=== PATIENT | female | born 1960 ===

== ENCOUNTER 2022-04-23 06:30 | Day surgery (SDC) | payer OTHER ==
[~2022-04-23] VITALS: Ht 160 cm; Wt 92.1 kg
[~2022-04-23 06:30] MED LIST: ZESTRIL20 MG PO
[2022-04-23] MEDS ORDERED: ULTRACET PO (09:33)
[2022-04-23] MEDS ORDERED: CEFADROXIL500 MG PO (09:34)
[2022-04-23] MEDS ORDERED: PROTONIX40 MG PO (09:35)
== END 2022-04-23 11:30 | disposition home or self-care (01) ==
LOC: SURH 06:30 → O/R 06:30 → CIR.AMB 06:30 → EDSTATUS 07:45 → SURH 07:45 → CIR.AMB 11:30 → O/R 11:30
PROVIDERS: ATTEND Surgery
DX: K80.10 Calculus of gallbladder with chronic cholecystitis without obstruction (principal); K82.8 Other specified diseases of gallbladder; I10 Essential (primary) hypertension; Z20.822 Contact with and (suspected) exposure to COVID-19; Z86.16 Personal history of COVID-19; E66.9 Obesity, unspecified